=== PATIENT | male | born 1965 | race Caucasian/White ===

== ENCOUNTER 2024-08-01 16:08 | Emergency (ER) | payer OTHER ==
[~2024-08-01] VITALS: Ht 175.3 cm; Wt 91.8 kg
[2024-08-01] MEDS: BOOSTRIX VACCINE (TETANUS/DIPHTH/ACEL. PERTUSSIS) 0.5ML SYR IM.IMMUN ONE (17:02)
[2024-08-01] MEDS ORDERED: DUPI300P (17:19)
[2024-08-01] MEDS ORDERED: CETI10CA2 PO (17:19)
[2024-08-01 17:20] LABS: BASO % 0.5 % (0.0-1.0); EOS # 0.2 10^3/uL (0.0-0.5); EOS % 3.2 % (0.0-3.0); HEMATOCRIT 46.7 % (42.0-52.0); HEMOGLOBIN 15.4 g/dl (13.5-17.5); LYMPH # 1.6 10^3/uL (1.5-5.0); LYMPH % 23.6 % (24.0-44.0); MEAN CORPUSCULAR HEMOGLOBIN 29.9 pg (27.0-33.0); MEAN CORPUSCULAR VOLUME 90.7 fl (80.0-96.0); MONO # 0.7 10^3/uL (0.0-0.8); MONO % 9.9 % (2.0-8.0); NEUTROPHILS # 4.2 10^3/uL (1.5-8.5); NEUTROPHILS % 62.3 % (36.0-66.0); PLATELET COUNT, AUTOMATED 336 10^3/uL (150-450); RED BLOOD COUNT 5.15 10^6/uL (4.30-6.10); WHITE BLOOD COUNT 6.7 10^3/uL (4.0-10.0)
[2024-08-01 17:33] LABS: INR 0.92; PARTIAL THROMBOPLASTIN TIME 26.4 SECONDS (24.8-34.2); PROTHROMBIN TIME 12.6 SECONDS (12.5-14.5)
[2024-08-01 17:43] LABS: CALCIUM LEVEL 9.4 MG/DL (8.5-10.1); CREATININE FOR GFR 1.07 MG/DL (0.70-1.30); GLOMERULAR FILTRATION RATE 80.9 (>56)
[2024-08-01] MEDS ORDERED: KETO-204 PO (18:38)
[2024-08-01] MEDS ORDERED: CEPH500T PO (18:38)
[2024-08-01] MEDS: CEPHALEXIN 500 MG CAP PO ONE (18:42)
[2024-08-01] MEDS: KETOROLAC 30 MG/ML 1ML VIAL IV ONE (18:43)
[2024-08-01] MEDS: NORCO 5/325MG TABLET (HOME DOSE PACK) PO ONE (19:13)
[2024-08-01 19:20] VITALS: BP 158/79; TEMP 98.8; O2SAT 97
== END 2024-08-01 19:20 | disposition home or self-care (01) ==
LOC: M ED 16:08
DX: S91.111A Laceration without foreign body of right great toe without damage to nail, initial encounter (principal); W28.XXXA Contact with powered lawn mower, initial encounter; C81.90 Hodgkin lymphoma, unspecified, unspecified site; Y92.007 Garden or yard of unspecified non-institutional (private) residence as the place of occurrence of the external cause; Y93.89 Activity, other specified; Y99.9 Unspecified external cause status; Z88.8 Allergy status to other drugs, medicaments and biological substances; Z79.2 Long term (current) use of antibiotics; Z79.899 Other long term (current) drug therapy; Z23 Encounter for immunization
CPT/HCPCS: 73620; 80048; 85025; 85610; 85730; 90471; 90715; 93005; 96374; 99284; J1885